=== PATIENT | female | born 1985 | race Caucasian/White ===

== ENCOUNTER 2021-12-18 01:14 | Emergency (ER) | payer BC ==
[~2021-12-18] VITALS: Ht 154.9 cm; Wt 78.0 kg
[2021-12-18 01:52] VITALS: BP_SYST 136
--- NOTE | 2021-12-18 03:08 | NUR ---
Patient to ER bed 7 to gown for evaluation. Side rails up. Report given to GEORGIE HENDRIX
--- NOTE | 2021-12-18 03:15 | NUR ---
Pt came from home with c/o rash on the right hand. Pt said she had 5 risen bumps on the hand that she popped and clear fluids came out. Pt reports not using any new products and denies allergies. Pt reports no pain. A&O x4, ambulatory, and follows simple commands. Safety precautions in place.
--- NOTE | 2021-12-18 03:23 | NUR ---
Dr. Rodriges at bedside.
[2021-12-18 04:13] VITALS: BP_SYST 121
--- NOTE | 2021-12-18 04:13 | NUR ---
Patient given written and verbal discharge instructions and verbalizes understanding. ER Dr. Rodriges discussed with patient the results and treatment provided. Patient in stable condition. ID arm band removed. Patient educated on pain management and to follow up with PMD. Pain Scale 0. Opportunity for questions provided and answered. Medication side effect fact sheet provided.
== END 2021-12-18 04:13 | disposition home or self-care (01) ==
LOC: SED 01:14
DX: R21 Rash and other nonspecific skin eruption (principal)
CPT/HCPCS: 99281